=== PATIENT | male | born 1995 | race Caucasian/White ===

== ENCOUNTER 2020-08-24 14:28 | Emergency (ER) | payer BC, SELFPAY ==
[2020-08-24] VITALS (13 sets, daily range): BP systolic 102–144; BP diastolic 55–101; PULSE 127–155; RESP 15–48; TEMP 37; O2SAT 94–98; BMI 20.9
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
[2020-08-24 15:04] LABS: Alanine Aminotransferase 35 IU/L (<50); Albumin Globulin Ratio 1.4 (1.0-2.8); Alkaline Phosphatase 79 U/L (38-126); Aspartate Aminotransferase 41 IU/L (17-59); BUN Creatinine Ratio 14.3 (6-22); Bilirubin Total 0.3 mg/dL (0.2-1.3); Blood Urea Nitrogen 15 mg/dL (9-20); Calcium 9.5 mg/dL (8.4-10.2); Carbon Dioxide 27 mmol/L (22-32); Chloride 106 mmol/L (98-107); Estimated Glomerular Filt Rate > 60.0 mL/min (>60); Globulin 3.5 g/dL (1.7-4.1); Glucose 136 mg/dL (70-100); HEMOLYSIS < 15 (0-50); Potassium 3.7 mmol/L (3.4-5.1); Sodium 144 mmol/L (137-145); Total Protein 8.5 g/dL (6.3-8.2)
--- NOTE | 2020-08-24 16:46 | DI.RAD.S_ITS ---
PROCEDURE: XR WRIST RT 2V INDICATIONS: post-reduction TECHNIQUE: 2 views of the wrist were acquired. COMPARISON: [facility], , XR WRIST RT 2V, 08/24/2020, 14:44. FINDINGS: Bones: On this post reduction study, there is improved anatomic alignment of the distal radius fracture, which demonstrates comminution and intra-articular involvement. There is a mildly displaced ulnar styloid fracture. The overlying casting material limits evaluation of fine detail. Soft tissues: No significant soft tissue abnormality is seen. IMPRESSION: Improved anatomic alignment on this post casting view. This patient also has an ulnar styloid fracture. Dictated by: Nnamdi Franco M.D. on 08/24/2020 at 16:13 Approved by: Nnamdi Franco M.D. on 08/24/2020 at 16:15
--- NOTE | 2020-08-24 16:59 | RT ---
At bedside for PRS for Arm Fx, bag mask unit at [facility] w suction functional. No distress noted and pt colten well. Etco2 on with 2 lpm nc. Sao2 98% during prs, pt alert and on room air 97%. Released and Rn at bedside
[2020-08-24] MEDS: propofoL 200 MG/20 ML VIAL IV (17:35)
[2020-08-24] MEDS: HYDROCODONE/ACET 5/325 PREPACK 1 BOTTLE MISC (17:35)
[2020-08-24] MEDS: ONDANSETRON 4 MG/2 ML INJ (17:36)
== END 2020-08-24 17:48 | disposition home or self-care (01) ==
PROVIDERS: Emergency Provider Emergency Medicine
DX: S52.501A Unspecified fracture of the lower end of right radius, initial encounter for closed fracture (principal); W19.XXXA Unspecified fall, initial encounter
CPT/HCPCS: 25605; 36415; 73100; 80053; 94770; 99152; 99284; J2405; J2704